=== PATIENT | male | born 1945 | race Caucasian/White ===

== ENCOUNTER 2018-10-12 11:54 | Inpatient (IN) ==
--- NOTE | 2018-10-12 12:54 | Internal Med History&Physical ---
Date of Encounter: 10/12/18 Time of Encounter: 12:32 Assessment and Plan (1) Acute exacerbation of chronic obstructive airways disease Current visit: Yes Status: Acute Patient was admitted to an [facility] hospital with exacerbation of COPD and right lower lobe pneumonia. Patient was treated with BiPAP, antibiotics and cortical steroids and had a uneventful recovery. Patient was transferred to this facility due to his poor endurance and generalized weakness. Patient currently appears relaxed with his respiratory status. Lungs are clear with diminished breath sounds to the lower joshi. Continues with supplemental oxygen. Productive cough with white thick sputum. Endorses orthopnea. We will continue with current plan of care. Patient remains on a prednisone slow taper. We will continue with current bronchodilators and patient does have a continued antibiotic. Therapy evaluation pending with recommendations. We will continue to monitor closely. (2) BPH (benign prostatic hyperplasia) Current visit: Yes Status: Acute Patient with a history of BPH. Currently denies any issues but does state he has occasional nocturia. We will continue with current medications and monitor closely Qualifiers: Lower urinary tract symptom presence: symptoms present Lower urinary tract symptom detail: unspecified Qualified Code(s): N40.1 - Benign prostatic hyperplasia with lower urinary tract symptoms (3) Pneumonia Current visit: No Status: Acute No acute issues at this time. Patient was treated for right lower lobe pneumonia. Patient continues with Zithromax. Afebrile. Thick white sputum received. We will continue with current plan of care. Qualifiers: Pneumonia type: due to unspecified organism Laterality: right Lung location: middle lobe of lung Qualified Code(s): J18.1 - Lobar pneumonia, unspecified organism (4) Low back pain Current visit: Yes Status: Chronic No acute issues. Patient with long-standing history of low back pain. We will continue with his current Percocet and Flexeril. Patient with an order for IM when necessary which we will use sparingly. Qualifiers: Chronicity: chronic Back pain laterality: unspecified Sciatica presence: with sciatica Sciatica laterality: sciatica laterality unspecified Qualified Code(s): M54.40 - Lumbago with sciatica, unspecified side; G89.29 - Other chronic pain Internal Medicine - H&P: HPI Chief complaint: COPD Admitted From: Hospital to Hospital Transfer Plans for Post Hospital Care: Home History of present illness: Mr. Parks is a 72 year old male, who was treated at an [facility] for exacerbation of COPD and right lower lobe pneumonia. Patient was treated with a BiPAP and antibiotics during his hospitalization and progressed well. Patient was evaluated for his history of CHF, requiring light diuresis. Most recent EF was documented at 55%. Patient reports that he has been a active smoker of a pack a day since he was 17 years old with his last day of smoking on the day of admission. Patient also with a history of chronic anemia, hypertension, GERD, BPH and chronic low back pain. Patient presents appearing alert and denies any discomforts or shortness of breath. Patient continues on supplemental oxygen at 2 L. His lungs are clear throughout upper joshi with diminished bases. Patient states he has a productive cough with a white phlegm produced. Patient states that his pulmonary status has worsened over the past several weeks, but prior to his original admission at the hospital he was able to go up and down stairs and ABG ambulate greater than 100% feet without difficulty. He states now he feels very weak and is unable to ambulate further than a few steps without being fatigued. He endorses orthopnea. Patient does state that he was using his nebulized bronchodilators as often as every 4 hours at home and did not use his rescue inhaler frequently throughout the day. Patient states his been on supplemental oxygen for the past 6 years. Patient states [facility] [place] [facility] and does see a pulmonology group in [place]. Past Med Surg Social Fam HX - Past Medical History Medical history: arthritis, asthma, COPD, hyperlipidemia, hypertension Additional medical history: pneumonia,lung mass removed,skin cancer Psychiatric history: no psych history - Past Surgical History Surgical History: non-contributory, other Additional surgical history: RIGHT LUNG SX, BACK SX - Social History Smoking Status: Smoker, status unknown Smokeless Tobacco Status: No Alcohol use: occasionally Drug use: none - Family History Father Adopted: No Family Member Ethnicity: Non- Living Status: Hx Family Respiratory Disorders: Yes Internal Medicine - H&P: Meds Acetylcysteine 10% 4 ml IH Q12H 04/08/15 [History] Albuterol Neb [AccuNeb] 0.63 mg IH Q6H PRN 04/08/15 [History] Albuterol Sulfate [Albuterol Inhaler] 2 puff IH Q4H PRN 04/08/15 [History] Atorvastatin [Lipitor] 10 mg PO HS 04/08/15 [History] Azithromycin [Azithromycin 6-Tab Pack] 250 mg PO PER PKG DI 04/08/15 [History] Budesonide/Formoterol 160/4.5 [Symbicort 160/4.5] 2 puff IH BID 04/08/15 [History] Calcium Carbonate 650 mg PO BID 04/08/15 [History] Fluticasone Propionate [Flovent Diskus] 50 mcg IH DAILY 04/08/15 [History] Guaifenesin 400 mg PO BID 04/08/15 [History] Metoprolol [Lopressor] 25 mg PO BID 04/08/15 [History] Nicotine Gum [Nicorette gum] 4 mg BC 5XD 04/08/15 [History] Roflumilast [Daliresp] 500 mcg PO DAILY 04/08/15 [History] Theophylline Anhydrous [Terrell-24] 100 mg PO DAILY 04/08/15 [History] Tiotropium [Spiriva] 18 mcg IH 1200 04/08/15 [History] predniSONE [PredniSONE] 10 mg PO DAILY 04/08/15 [History] Aspirin [Adult Low Dose Aspirin EC] 81 mg PO DAILY 04/09/15 [History] Cholecalciferol (Vitamin D3) [Vitamin D] 1,000 unit PO BID 04/09/15 [History] Multivitamin [Multi-Day Vitamins] 1 each PO DAILY 04/09/15 [History] Pseudoephedrine [Sudafed] 60 mg PO BID PRN 04/09/15 [History] Allergy/AdvReac Type Severity Reaction Status Date / Time codeine AdvReac Gastrointestinal Verified 08/02/17 09:30 Upset All Systems PM: A 10-system review of systems was performed and is negative for pertinent findings except as documented above in the HPI. - Constitutional Constitutional: as per HPI, no chills, no fever(s), no night sweats - EENT Eyes: as per HPI, no change in vision, no discharge, no pain, no photophobia Ears: as per HPI, no ear discharge, no ear pain, no tinnitus Nose, mouth and throat: as per HPI, no dysphagia, no nasal discharge, no neck pain, no sore throat - Breasts Breasts: as per HPI - Cardiovascular Cardiovascular ROS IM: as per HPI, no chest pain, no diaphoresis, no dyspnea, no lightheadedness, no palpitations, no syncope - Respiratory Respiratory: as per HPI, no cough, no dyspnea, no wheezing, no excessive phlegm production - Gastrointestinal Gastrointestinal: no abdominal pain, no diarrhea, no hematemesis, no hematochezia, no melena, no nausea, no vomiting - Genitourinary Genitourinary ROS male: as per HPI - Musculoskeletal Musculoskeletal ROS IM: as per HPI, no numbness, no tingling - Integumentary Integumentary IM: as per HPI, no rash, no unusual bruising - Neurological Neurological ROS: as per HPI, no confusion, no convulsions, no focal weakness, no numbness, no tingling, no tremor(s) - Psychiatric Psychiatric: as per HPI - Hematologic/Lymphatic Hematologic/Lymphatic: no easy bruising - Constitutional General appearance: Present: A&O X 3, pleasant - Head Head exam: Present: atraumatic, normocephalic - Eye Eye exam: Present: PERRL, conjuntiva pink, sclera anicteric Pupils: Present: PERRL - Neck Neck exam general surgery: Present: supple, trachea midline. Absent: lymphadenopathy - Respiratory Respiratory exam: Present: decreased breath sounds, CTAB. Absent: accessory muscle use, rales, rhonchi, wheezes Additional comments: Patient's lungs are clear throughout upper joshi with diminished breath sounds heard to the bases. Respiratory effort appears relaxed while at rest. Patient continues with supplemental oxygen at 2 L/m by nasal cannula. Patient states she has a productive cough with white phlegm produced - Cardiovascular Cardiovascular exam: Present: RRR, +S1, +S2. Absent: diastolic murmur, gallop, rubs, systolic murmur - GI/Abdominal GI/Abdominal exam: Present: normal bowel sounds, soft, no peritoneal signs. Absent: distended, tenderness - Extremities Exam Extremities exam: Present: warm, radial pulses palpable and symmetrical. Absent: calf tenderness, cyanotic, pedal edema - Neurological Exam Neurological exam: Present: CN II-XII intact, oriented X3, no focal deficits. Absent: pronater drift, facial droop, speech deficit - Skin Skin exam: Present: dry, intact
[2018-10-12] MEDS ORDERED: Nicotine 2 MG GUM BC PRN (14:28)
[2018-10-12] MEDS ORDERED: Albuterol Neb 0.63 MG/3 ML VIAL IH PRN (14:28)
[2018-10-12] MEDS ORDERED: *HR* OxyCODONE/APAP 5/325 TABLET PO PRN (14:28)
[2018-10-12] MEDS ORDERED: Azithromycin 250 MG TABLET PO ONE (14:35)
[2018-10-12] MEDS ORDERED: Azithromycin 250 MG TABLET PO SCH (14:45)
[2018-10-12] MEDS ORDERED: Nicotine 2 MG GUM BC SCH (16:00)
[2018-10-12] MEDS: Acetylcysteine 10% 2 ML INHSOL IH SCH ×2 (16:52→23:58)
[2018-10-12] MEDS: Budesonide/Formoterol 160/4.5 1 PUFF INH IH SCH (20:06)
[2018-10-12] MEDS ORDERED: diazePAM 2 MG TABLET PO SCH (21:00)
[2018-10-12] MEDS: traMADol 50 MG TABLET PO PRN (21:20)
[2018-10-12] MEDS: Fluticasone Propionate Nasal 50 MCG/SPRAY BOTTLE NS SCH (21:21)
[2018-10-12] MEDS: diazePAM 2 MG TABLET PO PRN (21:36)
[2018-10-13] MEDS: diazePAM 2 MG TABLET PO PRN (05:52)
[2018-10-13] MEDS: traMADol 50 MG TABLET PO PRN (05:52)
[2018-10-13 05:56] LABS: Hematocrit 32.2 % (37.5-50.1); Mean Corpuscular HGB Conc 31.1 g/dL (31.6-35.5); Mean Corpuscular Hemoglobin 28.7 pg (28.0-33.3); Mean Corpuscular Volume 92.3 fL (83.0-100.0); Mean Platelet Volume 8.8 fL (9.4-12.4); Platelet Count 333 K/mcL (140-400); Red Blood Count 3.49 M/mcL (4.19-5.50); Red Cell Distribution Width 14.1 % (11.5-14.5); White Blood Count 7.9 K/mcL (4.3-11.1)
[2018-10-13 06:15] LABS: Alanine Aminotransferase 16 Units/L (7-52); Albumin 3.1 g/dL (3.5-5.7); Albumin/Globulin Ratio 1.2 (1.1-2.2); Alkaline Phosphatase 67 Units/L (34-104); Aspartate Amino Transferase 7 Units/L (13-39); BUN/Creatinine Ratio 42 (6-26); Bilirubin,Total 0.6 mg/dL (0.3-1.0); Blood Urea Nitrogen 30 mg/dL (8-23); Calcium 9.4 mg/dL (8.6-10.3); Carbon Dioxide 36 mEq/L (23-29); Chloride 102 mEq/L (98-107); Globulin 2.6 g/dL (2.4-3.5); Glucose 95 mg/dL (70-105); Osmolality,Calculated 296 (280-300); Potassium 4.2 mEq/L (3.5-5.1); Sodium 140 mEq/L (136-145); Total Protein 5.7 g/dL (6.4-8.9); eGFR For African Americans > 60 (> 60); eGFR For Non-African Americans > 60 (> 60)
[2018-10-13] MEDS: Budesonide/Formoterol 160/4.5 1 PUFF INH IH SCH ×2 (09:51→19:41)
[2018-10-13] MEDS: Furosemide 40 MG TABLET PO SCH (10:42)
[2018-10-13] MEDS: Azithromycin 250 MG TABLET PO SCH (10:42)
[2018-10-13] MEDS: Multivit/Ca/Min/Fe/FA 1 TAB TABLET PO SCH (10:43)
[2018-10-13] MEDS: Aspirin Enteric Coated 81 MG Tablet PO SCH (10:44)
[2018-10-13] MEDS: predniSONE 10 MG TABLET PO SCH (10:46)
[2018-10-13] MEDS: Fluticasone Propionate Nasal 50 MCG/SPRAY BOTTLE NS SCH ×2 (10:47→21:57)
[2018-10-13] MEDS: Loratadine 10 MG TABLET PO SCH (10:48)
[2018-10-13] MEDS: Cyanocobalamin (B-12) 1,000 MCG TABLET PO SCH (10:49)
[2018-10-13] MEDS: (Roflumilast [Daliresp] 500 MCG) PO SCH (10:55)
--- NOTE | 2018-10-13 11:12 | Internal Med Progress Note ---
Date of Encounter: 10/13/18 Time of Encounter: 11:10 - Assessment and plan (1) Acute exacerbation of chronic obstructive airways disease Current Visit: Yes Status: Acute Assessment and plan: No acute issues. Patient ambulated greater than 100 feet this morning, before becoming slightly fatigued and winded. Patient states that he did not fill and need to use his rescue inhaler. Patient continues on oxygen at 23 liters nasal cannula to maintain saturations greater than 88%. We will continue to wean his oxygen. Continue with current bronchodilators and medications. (2) BPH (benign prostatic hyperplasia) Current Visit: Yes Status: Acute Assessment and plan: No acute issues. Patient denies any frequency or nocturia. We will continue with current medications Qualifiers: Lower urinary tract symptom presence: symptoms present Lower urinary tract symptom detail: unspecified Qualified Code(s): N40.1 - Benign prostatic hyperplasia with lower urinary tract symptoms (3) Pneumonia Current Visit: No Status: Acute Assessment and plan: Patient continues to have fine rales her to the lower joshi but no consolidation noted on auscultation. Respiratory effort appears relaxed while at rest. Patient remains afebrile. Continues with productive cough with thick white sputum received. Patient continues on Z-Anibal at this time Qualifiers: Pneumonia type: due to unspecified organism Laterality: right Lung location: middle lobe of lung Qualified Code(s): J18.1 - Lobar pneumonia, unspecified organism (4) Low back pain Current Visit: Yes Status: Chronic Assessment and plan: No acute issues. Patient continues with when necessary medications but has had normal use. Qualifiers: Chronicity: chronic Back pain laterality: unspecified Sciatica presence: with sciatica Sciatica laterality: sciatica laterality unspecified Qualified Code(s): M54.40 - Lumbago with sciatica, unspecified side; G89.29 - Other chronic pain - Time Spent With Patient less than 15 minutes - Subjective Interval history: Patient appears relaxed and currently denies any discomforts or shortness of breath. Patient did state that he ambulated with therapy this morning became winded, but did not require his rescue inhaler. Patient states she continues to have productive cough with a white thick phlegm received. Denies any fever/chills. Denies any chest palpitations or discomforts. - Constitutional Vitals: Temp Pulse Resp BP Pulse Ox 97.6 F 89 18 122/69 97 10/13/18 07:41 10/13/18 07:41 10/13/18 07:41 10/13/18 07:41 10/13/18 07:41 General appearance: Present: A&O X 3, pleasant - Head Head exam: Present: atraumatic, normocephalic - Eye Eye exam: Present: PERRL, conjuntiva pink, sclera anicteric Pupils: Present: PERRL - Neck Neck exam general surgery: Present: supple, trachea midline. Absent: lymphadenopathy - Respiratory Respiratory exam: Present: decreased breath sounds, CTAB, rales. Absent: accessory muscle use, rhonchi, wheezes Additional comments: Lungs are clear throughout upper joshi but noted diminished breath sounds to lower half of lung joshi and with scattered fine rales to posterior basis. Respiratory effort appears relaxed. Patient continues on supplemental oxygen at 3 L nasal cannula. - Cardiovascular Cardiovascular exam: Present: irregular rhythm, RRR, +S1, +S2. Absent: diast olic murmur, gallop, rubs, systolic murmur Additional comments: EKG was obtained which shows sinus rhythm with PACs. - GI/Abdominal GI/Abdominal exam: Present: normal bowel sounds, soft, no peritoneal signs. Absent: distended, tenderness - Extremities Exam Extremities exam: Present: warm, radial pulses palpable and symmetrical. Absent: calf tenderness, cyanotic, pedal edema - Neurological Exam Neurological exam: Present: CN II-XII intact, oriented X3, no focal deficits. Absent: pronater drift, facial droop, speech deficit - Skin Skin exam: Present: dry, intact Internal Medicine: Result - Labs CBC & Chem 7: 10/13/18 05:50 10/13/18 05:50 Labs: Short CBC 10/13/18 Range/Units 05:50 WBC 7.9 (4.3-11.1) K/mcL Hgb 10.0 L (12.9-16.9) g/dL Hct 32.2 L (37.5-50.1) % Plt Count 333 (140-400) K/mcL BMP 10/13/18 05:50 Sodium 140 Potassium 4.2 Chloride 102 Carbon Dioxide 36 H BUN 30 H Creatinine 0.71 Glucose 95 Calcium 9.4 Liver Function 10/13/18 Range/Units 05:50 Total Bilirubin 0.6 (0.3-1.0) mg/dL AST 7 L (13-39) Units/L ALT 16 (7-52) Units/L Alkaline Phosphatase 67 (34-104) Units/L Albumin 3.1 L (3.5-5.7) g/dL - EKG Interpretation EKG Interpreted by Myself: Yes EKG shows normal: sinus rhythm Rate: normal Consult Discharge Plan - Plan [facility]errals: [facility] [Primary Care Provider] -
[2018-10-13] MEDS ORDERED: Tiotropium 18 MCG inhalation IH SCH (12:00)
[2018-10-13] MEDS: *HR* Enoxaparin 40 MG/0.4 ML SYRINGE SQ SCH (13:07)
[2018-10-13] MEDS: Albuterol 2.5 MG/3 ML NEBULIZER IH SCH ×2 (17:11→19:41)
[2018-10-14] MEDS: Albuterol 2.5 MG/3 ML NEBULIZER IH SCH ×6 (00:04→21:36)
[2018-10-14] MEDS: *HR* Enoxaparin 40 MG/0.4 ML SYRINGE SQ SCH (05:15)
[2018-10-14] MEDS ORDERED: *HR* Enoxaparin 40 MG/0.4 ML SYRINGE SQ SCH (06:00)
[2018-10-14] MEDS: Budesonide/Formoterol 160/4.5 1 PUFF INH IH SCH ×2 (08:08→21:36)
[2018-10-14] MEDS: Tiotropium 18 MCG inhalation IH SCH (08:08)
[2018-10-14] MEDS: Loratadine 10 MG TABLET PO SCH (10:27)
[2018-10-14] MEDS: Furosemide 40 MG TABLET PO SCH ×2 (10:27→10:44)
[2018-10-14] MEDS: predniSONE 10 MG TABLET PO SCH (10:28)
[2018-10-14] MEDS: Cyanocobalamin (B-12) 1,000 MCG TABLET PO SCH (10:29)
[2018-10-14] MEDS: Azithromycin 250 MG TABLET PO SCH (10:29)
[2018-10-14] MEDS: Aspirin Enteric Coated 81 MG Tablet PO SCH (10:29)
[2018-10-14] MEDS: Multivit/Ca/Min/Fe/FA 1 TAB TABLET PO SCH (10:29)
[2018-10-14] MEDS: Fluticasone Propionate Nasal 50 MCG/SPRAY BOTTLE NS SCH ×2 (10:32→21:36)
[2018-10-14] MEDS: (Roflumilast [Daliresp] 500 MCG) PO SCH (10:32)
--- NOTE | 2018-10-14 11:35 | Internal Med Progress Note ---
Date of Encounter: 10/14/18 Time of Encounter: 11:32 - Assessment and plan (1) Acute exacerbation of chronic obstructive airways disease Current Visit: Yes Status: Acute Assessment and plan: No acute issues. Patient ambulated this morning and tolerated well. Patient continues on oxygen at 23 liters nasal cannula to maintain saturations greater than 88%. We will continue to wean his oxygen. Continue with current bronchodi lators and medications. (2) BPH (benign prostatic hyperplasia) Current Visit: Yes Status: Acute Assessment and plan: No acute issues. Patient denies any frequency or nocturia. We will continue with current medications Qualifiers: Lower urinary tract symptom presence: symptoms present Lower urinary tract symptom detail: unspecified Qualified Code(s): N40.1 - Benign prostatic hyperplasia with lower urinary tract symptoms (3) Pneumonia Current Visit: No Status: Acute Assessment and plan: Patient continues to have fine rales her to the lower joshi but no consolidation noted on auscultation. Respiratory effort appears relaxed while at rest. Patient remains afebrile. Continues with productive cough with thick white sputum received. Patient continues on Z-Anibal at this time Qualifiers: Pneumonia type: due to unspecified organism Laterality: right Lung location: middle lobe of lung Qualified Code(s): J18.1 - Lobar pneumonia, unspecified organism (4) Low back pain Current Visit: Yes Status: Chronic Assessment and plan: No acute issues. Patient did complain of slight pain to his lower back this morning but states that he will take only Tylenol at this time for the pain. Qualifiers: Chronicity: chronic Back pain laterality: unspecified Sciatica presence: with sciatica Sciatica laterality: sciatica laterality unspecified Qualified Code(s): M54.40 - Lumbago with sciatica, unspecified side; G89.29 - Other chronic pain - Time Spent With Patient less than 15 minutes - Subjective Interval history: Patient appears relaxed and currently denies any discomforts or shortness of breath. Patient states that he ambulated with therapy this morning and tolerated well from a pulmonary standpoint, but has had complaints of stiffness to his lower back. Patient with history of lumbar disc disease. Patient states she continues to have productive cough with a white thick phlegm received. Denies any fever/chills. Denies any chest palpitations or discomforts. - Constitutional Vitals: Temp Pulse Resp BP Pulse Ox 98.1 F 112 18 97/65 93 10/14/18 07:47 10/14/18 10:30 10/14/18 10:30 10/14/18 10:30 10/14/18 10:30 General appearance: Present: A&O X 3, pleasant - Head Head exam: Present: atraumatic, normocephalic - Eye Eye exam: Present: PERRL, conjuntiva pink, sclera anicteric Pupils: Present: PERRL - Neck Neck exam general surgery: Present: supple, trachea midline. Absent: lymphadenopathy - Respiratory Respiratory exam: Present: decreased breath sounds, CTAB, rales. Absent: accessory muscle use, rhonchi, wheezes Additional comments: Patient's lungs are clear throughout upper joshi but noted diminished breath sounds to lower half of his lung joshi and fine scattered rales to the poste rior bases. Respiratory effort appears relaxed while at rest. Patient continues with subsequent oxygen at 2 L per nasal cannula. Continues with a productive cough with mandel sputum received - Cardiovascular Cardiovascular exam: Present: RRR, +S1, +S2. Absent: diastolic murmur, gallop, rubs, systolic murmur - GI/Abdominal GI/Abdominal exam: Present: normal bowel sounds, soft, no peritoneal signs. Absent: distended, tenderness - Extremities Exam Extremities exam: Present: warm, radial pulses palpable and symmetrical. Absent: calf tenderness, cyanotic, pedal edema - Neurological Exam Neurological exam: Present: CN II-XII intact, oriented X3, no focal deficits. Absent: pronater drift, facial droop, speech deficit - Skin Skin exam: Present: dry, intact Internal Medicine: Result - Labs CBC & Chem 7: 10/13/18 05:50 10/13/18 05:50 Consult Discharge Plan - Plan [facility]errals: [facility] [Primary Care Provider] -
[2018-10-14] MEDS: traMADol 50 MG TABLET PO PRN (18:44)
[2018-10-15] MEDS: Albuterol 2.5 MG/3 ML NEBULIZER IH SCH ×7 (00:54→23:18)
[2018-10-15] MEDS: *HR* Enoxaparin 40 MG/0.4 ML SYRINGE SQ SCH (05:48)
[2018-10-15] MEDS: Tiotropium 18 MCG inhalation IH SCH (07:08)
[2018-10-15] MEDS: Budesonide/Formoterol 160/4.5 1 PUFF INH IH SCH ×2 (07:09→19:31)
[2018-10-15] MEDS: Aspirin Enteric Coated 81 MG Tablet PO SCH (08:21)
[2018-10-15] MEDS: predniSONE 10 MG TABLET PO SCH (08:22)
[2018-10-15] MEDS: Loratadine 10 MG TABLET PO SCH (08:22)
[2018-10-15] MEDS: Azithromycin 250 MG TABLET PO SCH (08:22)
[2018-10-15] MEDS: Multivit/Ca/Min/Fe/FA 1 TAB TABLET PO SCH (08:22)
[2018-10-15] MEDS: Furosemide 40 MG TABLET PO SCH (08:23)
[2018-10-15] MEDS: Cyanocobalamin (B-12) 1,000 MCG TABLET PO SCH (08:24)
[2018-10-15] MEDS: Fluticasone Propionate Nasal 50 MCG/SPRAY BOTTLE NS SCH ×2 (08:28→20:53)
[2018-10-15] MEDS: (Roflumilast [Daliresp] 500 MCG) PO SCH (08:28)
[2018-10-15] MEDS: traMADol 50 MG TABLET PO PRN ×2 (09:39→20:55)
--- NOTE | 2018-10-15 10:22 | Electrocardiograph Report ---
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
--- NOTE | 2018-10-15 18:07 | Internal Med Progress Note ---
Date of Encounter: 10/15/18 Time of Encounter: 16:30 - Subjective Interval history: - Assessment and plan (1) Acute exacerbation of chronic obstructive airways disease Current Visit: Yes Status: Acute Assessment and plan: No acute issues. Patient ambulated this morning and tolerated well. Patient continues on oxygen at 23 liters nasal cannula to maintain saturations greater than 88%. We will continue to wean his oxygen. Continue with current bronchodilators and medications. (2) BPH (benign prostatic hyperplasia) Current Visit: Yes Status: Acute Assessment and plan: No acute issues. Patient denies any frequency or nocturia. We will continue with current medications Qualifiers: Lower urinary tract symptom presence: symptoms present Lower urinary tract symptom detail: unspecified Qualified Code(s): N40.1 - Benign prostatic hyperplasia with lower urinary tract symptoms (3) Pneumonia Current Visit: No Status: Acute Assessment and plan: Patient continues to have fine rales her to the lower joshi but no consolidation noted on auscultation. Respiratory effort appears relaxed while at rest. Patient remains afebrile. Continues with productive cough with thick white sputum received. Patient continues on Z-Anibal at this time Qualifiers: Pneumonia type: due to unspecified organism Laterality: right Lung location: middle lobe of lung Qualified Code(s): J18.1 - Lobar pneumonia, unspecified organism (4) Low back pain Current Visit: Yes Status: Chronic Assessment and plan: No acute issues. Patient did complain of slight pain to his lower back this morning but states that he will take only Tylenol at this time for the pain. Qualifiers: Chronicity: chronic Back pain laterality: unspecified Sciatica presence: with sciatica Sciatica laterality: sciatica laterality unspecified Qualified Code(s): M54.40 - Lumbago with sciatica, unspecified side; G89.29 - Other chronic pain - Time Spent With Patient less than 15 minutes - Subjective Interval history: Patient appears relaxed and currently denies any discomforts or shortness of breath. Patient states that he continues to have complaints of stiffness to his lower back. Patient with history of lumbar disc disease. Patient states she continues to have productive cough with a white thick phlegm but less. Denies any fever/chills. Denies any chest palpitations or discomforts. EXAM General appearance: Present: A&O X 3, pleasant calm - Head Head exam: Present: atraumatic, normocephalic - Eye Eye exam: Present: PERRL, conjuntiva pink, sclera anicteric Pupils: Present: PERRL - Neck Neck exam general surgery: Present: supple, trachea midline. Absent: lymphadenopathy - Respiratory Respiratory exam: Present: decreased breath sounds, CTAB, rales. Absent: accessory muscle use, rhonchi, wheezes Additional comments: Patient's lungs are clear throughout upper joshi but noted diminished breath sounds bilat bases Continues with a slight productive cough with mandel sputum received - Cardiovascular Cardiovascular exam: Present: RRR, +S1, +S2. Absent: diastolic murmur, gallop, rubs, systolic murmur - GI/Abdominal GI/Abdominal exam: Present: normal bowel sounds, soft, no peritoneal signs. Absent: distended, tenderness - Extremities Exam Extremities exam: Present: warm, radial pulses palpable and symmetrical. Absent: calf tenderness, cyanotic, pedal edema - Neurological Exam Neurological exam: Present: CN II-XII intact, oriented X3, no focal deficits. Absent: pronater drift, facial droop, speech deficit - Skin Skin exam: Present: dry, intact - Constitutional Vitals: Temp Pulse Resp BP Pulse Ox 98.1 F 83 19 95/55 96 10/15/18 07:33 10/15/18 07:33 10/15/18 16:09 10/15/18 07:33 10/15/18 16:09 General appearance: Present: A&O X 3, pleasant Internal Medicine: Result - Labs CBC & Chem 7: 10/13/18 05:50 10/13/18 05:50 Consult Discharge Plan - Plan [facility]errals: [facility] [Primary Care Provider] -
[2018-10-16] MEDS: Albuterol 2.5 MG/3 ML NEBULIZER IH SCH ×6 (04:48→23:33)
[2018-10-16] MEDS: *HR* Enoxaparin 40 MG/0.4 ML SYRINGE SQ SCH (04:58)
[2018-10-16] MEDS: Tiotropium 18 MCG inhalation IH SCH (07:13)
[2018-10-16] MEDS: Budesonide/Formoterol 160/4.5 1 PUFF INH IH SCH ×2 (07:14→19:54)
[2018-10-16] MEDS: Furosemide 40 MG TABLET PO SCH (09:29)
[2018-10-16] MEDS: Azithromycin 250 MG TABLET PO SCH (09:29)
[2018-10-16] MEDS: Aspirin Enteric Coated 81 MG Tablet PO SCH (09:30)
[2018-10-16] MEDS: Loratadine 10 MG TABLET PO SCH (09:30)
[2018-10-16] MEDS: Multivit/Ca/Min/Fe/FA 1 TAB TABLET PO SCH (09:30)
[2018-10-16] MEDS: Cyanocobalamin (B-12) 1,000 MCG TABLET PO SCH (09:30)
[2018-10-16] MEDS: predniSONE 10 MG TABLET PO SCH (09:33)
[2018-10-16] MEDS: Fluticasone Propionate Nasal 50 MCG/SPRAY BOTTLE NS SCH ×2 (09:33→20:30)
[2018-10-16] MEDS: (Roflumilast [Daliresp] 500 MCG) PO SCH (09:34)
--- NOTE | 2018-10-16 19:08 | Internal Med Progress Note ---
Date of Encounter: 10/16/18 Time of Encounter: 16:50 - Subjective Interval history: - Assessment and plan (1) Acute exacerbation of chronic obstructive airways disease Current Visit: Yes Status: Acute Assessment and plan: stable. STill sob with exertion at times. Patient continues on oxygen nasal cannula to maintain saturations greater than 88%. We will continue to wean his oxygen. still with some cough. Continue with current bronchodilators and medications. (2) BPH (benign prostatic hyperplasia) Current Visit: Yes Status: Acute Assessment and plan: No acute issues. Patient denies any frequency or nocturia. We will continue with current medications Qualifiers: Lower urinary tract symptom presence: symptoms present Lower urinary tract symptom detail: unspecified Qualified Code(s): N40.1 - Benign prostatic hyperplasia with lower urinary tract symptoms (3) Pneumonia Current Visit: No Status: Acute Assessment and plan: Patient continues to have fine rales her to the lower joshi but no conso lidation noted on auscultation. Respiratory effort appears relaxed while at rest. Patient remains afebrile. Continues with productive cough with thick white sputum received. Patient continues on Z-Anibal at this time Qualifiers: Pneumonia type: due to unspecified organism Laterality: right Lung location: middle lobe of lung Qualified Code(s): J18.1 - Lobar pneumonia, unspecified organism (4) Low back pain Current Visit: Yes Status: Chronic Assessment and plan: No acute issues. Patient did complain of slight pain to his lower back this morning but states that he will take only Tylenol at this time for the pain. Qualifiers: Chronicity: chronic Back pain laterality: unspecified Sciatica presence: with sciatica Sciatica laterality: sciatica laterality unspecified Qualified Code(s): M54.40 - Lumbago with sciatica, unspecified side; G89.29 - Other chronic pain - Time Spent With Patient less than 15 minutes - Subjective Interval history: Patient appears relaxed and currently denies any discomforts or shortness of breath. Patient states that he continues to have complaints of stiffness to his lower back. Patient with history of lumbar disc disease. Patient states she continues to have productive cough with a white thick phlegm but less. Denies any fever/chills. Denies any chest palpitations or discomforts. EXAM General appearance: Present: A&O X 3 - Head Head exam: Present: atraumatic, normocephalic - Eye Eye exam: Present: PERRL, conjuntiva pink, sclera anicteric Pupils: Present: PERRL - Neck Neck exam general surgery: Present: supple, trachea midline. Absent: lymphadenopathy - Respiratory Respiratory exam: Present: decreased breath sounds, CTAB, rales. Absent: accessory muscle use, rhonchi, wheezes Additional comments: Patient's lungs are clear throughout upper joshi but noted diminished breath sounds bilat bases Continues with a slight productive cough with mandel sputum received - Cardiovascular Cardiovascular exam: Present: RRR, +S1, +S2. Absent: diastolic murmur, gallop, rubs, systolic murmur - GI/Abdominal GI/Abdominal exam: Present: normal bowel sounds, soft, no peritoneal signs. Absent: distended, tenderness - Extremities Exam Extremities exam: Present: warm, radial pulses palpable and symmetrical. Absent: calf tenderness, cyanotic, pedal edema - Neurological Exam Neurological exam: Present: CN II-XII intact, oriented X3, no focal deficits. Absent: pronater drift, facial droop, speech deficit - Skin Skin exam: Present: dry, intact - Constitutional Vitals: Temp Pulse Resp BP Pulse Ox 97.7 F 89 18 101/47 96 10/16/18 09:24 10/16/18 09:24 10/16/18 15:47 10/16/18 09:24 10/16/18 15:47 General appearance: Present: A&O X 3, pleasant Internal Medicine: Result - Labs CBC & Chem 7: 10/13/18 05:50 10/13/18 05:50 Consult Discharge Plan - Plan [facility]errals: [facility] [Primary Care Provider] -
[2018-10-16] MEDS: traMADol 50 MG TABLET PO PRN (20:31)
[2018-10-17] MEDS ORDERED: Mag Hydrox/Al Hydrox/Simeth 30 ML UDC PO PRN (00:07)
[2018-10-17] MEDS: Albuterol 2.5 MG/3 ML NEBULIZER IH SCH ×5 (03:57→22:02)
[2018-10-17] MEDS: *HR* Enoxaparin 40 MG/0.4 ML SYRINGE SQ SCH (04:15)
[2018-10-17] MEDS: Tiotropium 18 MCG inhalation IH SCH (07:26)
[2018-10-17] MEDS: Budesonide/Formoterol 160/4.5 1 PUFF INH IH SCH ×2 (07:27→21:59)
[2018-10-17] MEDS: Furosemide 40 MG TABLET PO SCH (09:27)
[2018-10-17] MEDS: Azithromycin 250 MG TABLET PO SCH (09:27)
[2018-10-17] MEDS: Multivit/Ca/Min/Fe/FA 1 TAB TABLET PO SCH (09:27)
[2018-10-17] MEDS: Aspirin Enteric Coated 81 MG Tablet PO SCH (09:27)
[2018-10-17] MEDS: Loratadine 10 MG TABLET PO SCH (09:28)
[2018-10-17] MEDS: Cyanocobalamin (B-12) 1,000 MCG TABLET PO SCH (09:28)
[2018-10-17] MEDS: Fluticasone Propionate Nasal 50 MCG/SPRAY BOTTLE NS SCH ×2 (09:29→21:59)
[2018-10-17] MEDS: (Roflumilast [Daliresp] 500 MCG) PO SCH (09:30)
[2018-10-17] MEDS: predniSONE 10 MG TABLET PO SCH (09:31)
--- NOTE | 2018-10-17 12:08 | Internal Med Progress Note ---
Date of Encounter: 10/17/18 Time of Encounter: 12:06 - Assessment and plan (1) Acute exacerbation of chronic obstructive airways disease Current Visit: Yes Status: Acute Assessment and plan: Improving. Continue O2 per nasal nasal cannula. Continue prednisone. Continue PT and OT for deconditioning. Will follow progress. (2) BPH (benign prostatic hyperplasia) Current Visit: Yes Status: Acute Assessment and plan: Denies complaints or issues. Continue current medication. Qualifiers: Lower urinary tract symptom presence: symptoms present Lower urinary tract symptom detail: unspecified Qualified Code(s): N40.1 - Benign prostatic hyperplasia with lower urinary tract symptoms - Time Spent With Patient less than 15 minutes - Subjective Interval history: Dissipating well with therapy. States she feels like he is getting stronger. Has had improved appetite. States shortness of breath is improving. Still has a productive cough with white sputum. Denies chest pain, fever, chills, nausea vomiting or diarrhea. - Constitutional Vitals: Temp Pulse Resp BP Pulse Ox 98.1 F 88 18 102/46 98 10/17/18 08:22 10/17/18 08:22 10/17/18 11:11 10/17/18 08:22 10/17/18 11:11 General appearance: Present: cooperative, A&O X 3, pleasant, no acute distress, answers questions appropriately - Head Head exam: Present: atraumatic, normocephalic - Eye Eye exam: Present: PERRL, conjuntiva pink, sclera anicteric Pupils: Present: PERRL - Neck Neck exam general surgery: Present: supple, trachea midline. Absent: lymphadenopathy - Respiratory Respiratory exam: Absent: accessory muscle use, rales, rhonchi, wheezes Additional comments: Find crackles to right lower lobe, diminished bilateral basis. - Cardiovascular Cardiovascular exam: Present: RRR, +S1, +S2. Absent: diastolic murmur, gallop, rubs, systolic murmur - GI/Abdominal GI/Abdominal exam: Present: normal bowel sounds, soft, no peritoneal signs. Ab sent: distended, tenderness - Extremities Exam Extremities exam: Present: warm, radial pulses palpable and symmetrical. Absent: calf tenderness, cyanotic, pedal edema - Neurological Exam Neurological exam: Present: CN II-XII intact, oriented X3, no focal deficits. Absent: pronater drift, facial droop, speech deficit - Skin Skin exam: Present: dry, intact Internal Medicine: Result - Labs CBC & Chem 7: 10/13/18 05:50 10/13/18 05:50 Consult Discharge Plan - Plan [facility]errals: [facility] [Primary Care Provider] -
[2018-10-17] MEDS: traMADol 50 MG TABLET PO PRN (22:02)
[2018-10-18] MEDS: Albuterol 2.5 MG/3 ML NEBULIZER IH SCH ×6 (04:07→20:57)
[2018-10-18] MEDS: *HR* Enoxaparin 40 MG/0.4 ML SYRINGE SQ SCH (04:54)
[2018-10-18] MEDS: Budesonide/Formoterol 160/4.5 1 PUFF INH IH SCH ×2 (07:19→20:56)
[2018-10-18] MEDS: Tiotropium 18 MCG inhalation IH SCH (07:50)
[2018-10-18] MEDS: Multivit/Ca/Min/Fe/FA 1 TAB TABLET PO SCH (08:04)
[2018-10-18] MEDS: Loratadine 10 MG TABLET PO SCH (08:04)
[2018-10-18] MEDS: Aspirin Enteric Coated 81 MG Tablet PO SCH (08:04)
[2018-10-18] MEDS: Cyanocobalamin (B-12) 1,000 MCG TABLET PO SCH (08:04)
[2018-10-18] MEDS: Furosemide 40 MG TABLET PO SCH (08:04)
[2018-10-18] MEDS: predniSONE 10 MG TABLET PO SCH (08:05)
[2018-10-18] MEDS: Fluticasone Propionate Nasal 50 MCG/SPRAY BOTTLE NS SCH ×2 (08:07→20:55)
[2018-10-18] MEDS: (Roflumilast [Daliresp] 500 MCG) PO SCH (08:09)
--- NOTE | 2018-10-18 10:55 | Internal Med Progress Note ---
Date of Encounter: 10/18/18 Time of Encounter: 10:53 - Assessment and plan (1) Acute exacerbation of chronic obstructive airways disease Current Visit: Yes Status: Acute Assessment and plan: Improving. Continue O2 per nasal nasal cannula. Continue prednisone. Continue PT and OT for deconditioning. Will follow progress. (2) BPH (benign prostatic hyperplasia) Current Visit: Yes Status: Acute Assessment and plan: Denies complaints or issues. Continue current medication. Qualifiers: Lower urinary tract symptom presence: symptoms present Lower urinary tract symptom detail: unspecified Qualified Code(s): N40.1 - Benign prostatic hyperplasia with lower urinary tract symptoms - Time Spent With Patient less than 15 minutes - Subjective Interval history: participating well with therapy. States feeling better today, sitting on side of bed. Has had improved appetite. States shortness of breath is improving. Still has a productive cough with white sputum. Denies chest pain, fever, chills, nausea vomiting or diarrhea. back pain improving with lidoderm patch. - Constitutional Vitals: Temp Pulse Resp BP Pulse Ox 97.7 F 108 18 109/50 96 10/18/18 08:00 10/18/18 08:00 10/18/18 08:00 10/18/18 08:00 10/18/18 08:00 General appearance: Present: cooperative, A&O X 3, pleasant, no acute distress, answers questions appropriately - Head Head exam: Present: atraumatic, normocephalic - Eye Eye exam: Present: PERRL, conjuntiva pink, sclera anicteric Pupils: Present: PERRL - Neck Neck exam general surgery: Present: supple, trachea midline. Absent: lymphadenopathy - Respiratory Respiratory exam: Present: CTAB. Absent: accessory muscle use, rales, rhonchi, wheezes - Cardiovascular Cardiovascular exam: Present: RRR, +S1, +S2. Absent: diastolic murmur, gallop, rubs, systolic murmur - GI/Abdominal GI/Abdominal exam: Present: normal bowel sounds, soft, no peritoneal signs. Absent: distended, tenderness - Extremities Exam Extremities exam: Present: warm, radial pulses palpable and symmetrical. Absent: calf tenderness, cyanotic, pedal edema - Neurological Exam Neurological exam: Present: CN II-XII intact, oriented X3, no focal deficits. Absent: pronater drift, facial droop, speech deficit - Skin Skin exam: Present: dry, intact Internal Medicine: Result - Labs CBC & Chem 7: 10/13/18 05:50 10/13/18 05:50 Consult Discharge Plan - Plan [facility]errals: [facility] [Primary Care Provider] -
[2018-10-19] MEDS: Albuterol 2.5 MG/3 ML NEBULIZER IH SCH ×6 (00:56→21:21)
[2018-10-19] MEDS: *HR* Enoxaparin 40 MG/0.4 ML SYRINGE SQ SCH (05:00)
[2018-10-19] MEDS: Budesonide/Formoterol 160/4.5 1 PUFF INH IH SCH ×2 (07:12→19:38)
[2018-10-19] MEDS: Tiotropium 18 MCG inhalation IH SCH (07:13)
[2018-10-19] MEDS: Cyanocobalamin (B-12) 1,000 MCG TABLET PO SCH (09:08)
[2018-10-19] MEDS: Aspirin Enteric Coated 81 MG Tablet PO SCH (09:08)
[2018-10-19] MEDS: Loratadine 10 MG TABLET PO SCH (09:08)
[2018-10-19] MEDS: Furosemide 40 MG TABLET PO SCH (09:09)
[2018-10-19] MEDS: predniSONE 10 MG TABLET PO SCH (09:09)
[2018-10-19] MEDS: Fluticasone Propionate Nasal 50 MCG/SPRAY BOTTLE NS SCH ×2 (09:10→21:55)
[2018-10-19] MEDS: Multivit/Ca/Min/Fe/FA 1 TAB TABLET PO SCH (09:13)
[2018-10-19] MEDS: (Roflumilast [Daliresp] 500 MCG) PO SCH (09:17)
--- NOTE | 2018-10-19 10:47 | Internal Med Progress Note ---
Date of Encounter: 10/19/18 Time of Encounter: 10:46 - Assessment and plan (1) Acute exacerbation of chronic obstructive airways disease Current Visit: Yes Status: Acute Assessment and plan: No acute issues. Patient ambulated this morning and tolerated well. Patient continues on oxygen at 23 liters nasal cannula to maintain saturations greater than 88%. Therapy reports patient's oxygen saturations have remained greater th an 90 during therapy We will continue to wean his oxygen. Continue with current bronchodilators and medications. (2) BPH (benign prostatic hyperplasia) Current Visit: Yes Status: Acute Assessment and plan: No acute issues. Patient denies any frequency or nocturia. We will continue with current medications Qualifiers: Lower urinary tract symptom presence: symptoms present Lower urinary tract symptom detail: unspecified Qualified Code(s): N40.1 - Benign prostatic hyperplasia with lower urinary tract symptoms (3) Low back pain Current Visit: Yes Status: Chronic Qualifiers: Chronicity: chronic Back pain laterality: unspecified Sciatica presence: with sciatica Sciatica laterality: sciatica laterality unspecified Qualified Code(s): M54.40 - Lumbago with sciatica, unspecified side; G89.29 - Other chronic pain - Time Spent With Patient less than 15 minutes - Subjective Interval history: Patient appears relaxed and currently denies any discomforts or shortness of breath. Patient states that he ambulated with therapy this morning and tolerated well from a pulmonary standpoint, but has had complaints of stiffness to his lower back. Patient with history of lumbar disc disease. Patient states she continues to have productive cough with a white thick phlegm received. Denies any fever/chills. Denies any chest palpitations or discomforts. - Constitutional Vitals: Temp Pulse Resp BP Pulse Ox 98.7 F 96 16 101/45 98 10/19/18 07:48 10/19/18 07:48 10/19/18 07:48 10/19/18 07:48 10/19/18 07:48 General appearance: Present: cooperative, A&O X 3, pleasant, no acute distress, answers questions appropriately - Head Head exam: Present: atraumatic, normocephalic - Eye Eye exam: Present: PERRL, conjuntiva pink, sclera anicteric Pupils: Present: PERRL - Neck Neck exam general surgery: Present: supple, trachea midline. Absent: lymphadenopathy - Respiratory Respiratory exam: Present: decreased breath sounds, CTAB. Absent: accessory muscle use, rales, rhonchi, wheezes - Cardiovascular Cardiovascular exam: Present: RRR, +S1, +S2. Absent: diastolic murmur, gallop, rubs, systolic murmur - GI/Abdominal GI/Abdominal exam: Present: normal bowel sounds, soft, no peritoneal signs. Ab sent: distended, tenderness - Extremities Exam Extremities exam: Present: warm, radial pulses palpable and symmetrical. Absent: calf tenderness, cyanotic, pedal edema - Neurological Exam Neurological exam: Present: CN II-XII intact, oriented X3, no focal deficits. Absent: pronater drift, facial droop, speech deficit - Skin Skin exam: Present: dry, intact Internal Medicine: Result - Labs CBC & Chem 7: 10/13/18 05:50 10/13/18 05:50 Consult Discharge Plan - Plan [facility]errals: [facility] [Primary Care Provider] -
[2018-10-20] MEDS: Albuterol 2.5 MG/3 ML NEBULIZER IH SCH ×7 (05:36→23:18)
[2018-10-20] MEDS: *HR* Enoxaparin 40 MG/0.4 ML SYRINGE SQ SCH (05:37)
[2018-10-20] MEDS: Fluticasone Propionate Nasal 50 MCG/SPRAY BOTTLE NS SCH ×2 (08:11→21:37)
[2018-10-20] MEDS: Cyanocobalamin (B-12) 1,000 MCG TABLET PO SCH (08:12)
[2018-10-20] MEDS: predniSONE 10 MG TABLET PO SCH (08:12)
[2018-10-20] MEDS: Multivit/Ca/Min/Fe/FA 1 TAB TABLET PO SCH (08:12)
[2018-10-20] MEDS: Loratadine 10 MG TABLET PO SCH (08:12)
[2018-10-20] MEDS: Aspirin Enteric Coated 81 MG Tablet PO SCH (08:12)
[2018-10-20] MEDS: Furosemide 40 MG TABLET PO SCH (08:13)
[2018-10-20] MEDS: (Roflumilast [Daliresp] 500 MCG) PO SCH (08:13)
[2018-10-20] MEDS: Budesonide/Formoterol 160/4.5 1 PUFF INH IH SCH ×2 (08:22→19:47)
[2018-10-20] MEDS: Tiotropium 18 MCG inhalation IH SCH (08:34)
--- NOTE | 2018-10-20 12:02 | Internal Med Progress Note ---
Date of Encounter: 10/20/18 Time of Encounter: 12:00 - Assessment and plan (1) Acute exacerbation of chronic obstructive airways disease Current Visit: Yes Status: Acute Assessment and plan: Improving. Continue O2 per nasal nasal cannula. Continue prednisone. Continue PT and OT for deconditioning. Will follow progress. continue to wean 02 (2) BPH (benign prostatic hyperplasia) Current Visit: Yes Status: Acute Assessment and plan: Denies complaints or issues. Continue current medication. Qualifiers: Lower urinary tract symptom presence: symptoms present Lower urinary tract symptom detail: unspecified Qualified Code(s): N40.1 - Benign prostatic hyperplasia with lower urinary tract symptoms - Time Spent With Patient less than 15 minutes - Subjective Interval history: participating well with therapy. States feeling better today, sitting on side of bed. Has had improved appetite. States shortness of breath is improving. Still has a productive cough with white sputum. maintaining 02 sats >92% on 2 liters per NC. Denies chest pain, fever, chills, nausea vomiting or diarrhea. planning discharge to home for 10/22. - Constitutional Vitals: Temp Pulse Resp BP Pulse Ox 97.8 F 89 18 114/61 97 10/20/18 07:10 10/20/18 07:10 10/20/18 07:10 10/20/18 07:10 10/20/18 07:10 General appearance: Present: cooperative, A&O X 3, pleasant, no acute distress, answers questions appropriately - Head Head exam: Present: atraumatic, normocephalic - Eye Eye exam: Present: PERRL, conjuntiva pink, sclera anicteric Pupils: Present: PERRL - Neck Neck exam general surgery: Present: supple, trachea midline. Absent: lymphadenopathy - Respiratory Respiratory exam: Present: CTAB. Absent: accessory muscle use, rales, rhonchi, wheezes - Cardiovascular Cardiovascular exam: Present: RRR, +S1, +S2. Absent: diastolic murmur, gallop, rubs, systolic murmur - GI/Abdominal GI/Abdominal exam: Present: normal bowel sounds, soft, no peritoneal signs. Absent: distended, tenderness - Extremities Exam Extremities exam: Present: warm, radial pulses palpable and symmetrical. Absent: calf tenderness, cyanotic, pedal edema - Neurological Exam Neurological exam: Present: CN II-XII intact, oriented X3, no focal deficits. Absent: pronater drift, facial droop, speech deficit - Skin Skin exam: Present: dry, intact Internal Medicine: Result - Labs CBC & Chem 7: 10/13/18 05:50 10/13/18 05:50 Consult Discharge Plan - Plan Referrals: [facility] [Primary Care Provider] -
[2018-10-21] MEDS: Albuterol 2.5 MG/3 ML NEBULIZER IH SCH ×6 (03:30→23:27)
[2018-10-21] MEDS: *HR* Enoxaparin 40 MG/0.4 ML SYRINGE SQ SCH (06:14)
[2018-10-21] MEDS: Tiotropium 18 MCG inhalation IH SCH (07:19)
[2018-10-21] MEDS: Budesonide/Formoterol 160/4.5 1 PUFF INH IH SCH ×2 (07:21→19:43)
[2018-10-21] MEDS: Fluticasone Propionate Nasal 50 MCG/SPRAY BOTTLE NS SCH ×2 (08:29→20:30)
[2018-10-21] MEDS: Loratadine 10 MG TABLET PO SCH (08:30)
[2018-10-21] MEDS: Furosemide 40 MG TABLET PO SCH (08:30)
[2018-10-21] MEDS: Multivit/Ca/Min/Fe/FA 1 TAB TABLET PO SCH (08:30)
[2018-10-21] MEDS: Cyanocobalamin (B-12) 1,000 MCG TABLET PO SCH (08:30)
[2018-10-21] MEDS: Aspirin Enteric Coated 81 MG Tablet PO SCH (08:30)
[2018-10-21] MEDS: (Roflumilast [Daliresp] 500 MCG) PO SCH (08:31)
[2018-10-21] MEDS: predniSONE 10 MG TABLET PO SCH (08:36)
--- NOTE | 2018-10-21 10:12 | Internal Med Progress Note ---
Date of Encounter: 10/21/18 Time of Encounter: 10:10 - Assessment and plan (1) Acute exacerbation of chronic obstructive airways disease Current Visit: Yes Status: Acute Assessment and plan: No acute issues. Patient ambulated this morning and tolerated well. Patient continues on oxygen at 23 liters nasal cannula to maintain saturations greater than 88%. Therapy reports patient's oxygen saturations have remained greater th an 90 during therapy We will continue to wean his oxygen. Continue with current bronchodilators and medications. Patient's being prepared for possible discharge in the morning. (2) BPH (benign prostatic hyperplasia) Current Visit: Yes Status: Acute Assessment and plan: No acute issues. Patient denies any frequency or nocturia. We will continue with current medications Qualifiers: Lower urinary tract symptom presence: symptoms present Lower urinary tract symptom detail: unspecified Qualified Code(s): N40.1 - Benign prostatic hyperplasia with lower urinary tract symptoms (3) Low back pain Current Visit: Yes Status: Chronic Assessment and plan: No acute issues. Patient currently denies any low back pain. Qualifiers: Chronicity: chronic Back pain laterality: unspecified Sciatica presence: with sciatica Sciatica laterality: sciatica laterality unspecified Qualified Code(s): M54.40 - Lumbago with sciatica, unspecified side; G89.29 - Other chronic pain - Time Spent With Patient less than 15 minutes - Subjective Interval history: Patient appears relaxed and currently denies any discomforts or shortness of breath. Patient states he continues to have productive cough with a white thick phlegm received. Denies any fever/chills. Denies any chest palpitations or discomforts. Patient states that he feels his pulmonary endurance has increased greatly while admitted in rehabilitation. Patient being prepared for possible discharge in the morning. - Constitutional Vitals: Temp Pulse Resp BP Pulse Ox 98.1 F 98 16 102/50 98 10/21/18 07:29 10/21/18 07:29 10/21/18 07:29 10/21/18 07:29 10/21/18 07:29 General appearance: Present: cooperative, A&O X 3, pleasant, no acute distress, answers questions appropriately - Head Head exam: Present: atraumatic, normocephalic - Eye Eye exam: Present: PERRL, conjuntiva pink, sclera anicteric Pupils: Present: PERRL - Neck Neck exam general surgery: Present: supple, trachea midline. Absent: lymphadenopathy - Respiratory Respiratory exam: Present: decreased breath sounds, CTAB. Absent: accessory muscle use, rales, rhonchi, wheezes Additional comments: Lungs are clear throughout upper joshi with noted fine rales to posterior bases. Respiratory effort appears relaxed while at rest. No productive cough noted. - Cardiovascular Cardiovascular exam: Present: irregular rhythm, RRR, +S1, +S2. Absent: diastolic murmur, gallop, rubs, systolic murmur Additional comments: Heart rate remains irregular with a controlled rate less than 100. - GI/Abdominal GI/Abdominal exam: Present: normal bowel sounds, soft, no peritoneal signs. Absent: distended, tenderness - Extremities Exam Extremities exam: Present: warm, radial pulses palpable and symmetrical. Absent: calf tenderness, cyanotic, pedal edema - Neurological Exam Neurological exam: Present: CN II-XII intact, oriented X3, no focal deficits. Absent: pronater drift, facial droop, speech deficit - Skin Skin exam: Present: dry, intact Internal Medicine: Result - Labs CBC & Chem 7: 10/13/18 05:50 10/13/18 05:50 Consult Discharge Plan - Plan Referrals: [facility] [Primary Care Provider] -
--- NOTE | 2018-10-21 10:54 | Discharge Summary ---
<Tommie Guan - Last Filed: 10/21/18 10:50> Date of Encounter: 10/22/18 - Discharge Diagnosis (1) Acute exacerbation of chronic obstructive airways disease Priority: Primary Status: Acute Comments: Patient was admitted to this facility for rehabilitation due to generalized weakness and dyspnea following a hospitalization for respiratory failure and pneumonia. Patient has progressed well during this stay. Patient currently has been maintain his oxygen saturation greater than 90% while on supplemental oxygen. Patient states his endurance has improved and he is able to ambulate 100 feet without any dyspnea. Patient is being discharged to home and is to continue his therapy to outpatient services here at [facility]. 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 (2) BPH (benign prostatic hyperplasia) Status: Acute Comments: No acute issues during stay of facility. Patient has denied any nocturia or frequency. He is to continue with his current medications and follow-up with his PCP after discharge. Qualifiers: Lower urinary tract symptom presence: symptoms present Lower urinary tract symptom detail: unspecified Qualified Code(s): N40.1 - Benign prostatic hyperplasia with lower urinary tract symptoms (3) Low back pain Status: Chronic Comments: Patient continues with chronic low back pain which has been well managed with oral medications. No acute radicular symptoms noted. Patient is continue with home medications and continue his physical therapy to outpatient services. Qualifiers: Chronicity: chronic Back pain laterality: unspecified Sciatica presence: with sciatica Sciatica laterality: sciatica laterality unspecified Qualified Code(s): M54.40 - Lumbago with sciatica, unspecified side; G89.29 - Other chronic pain Hospital course: Mr. Parks is a 72 year old male, who was admitted to this facility for rehabilitation due to generalized weakness and dyspnea following a hospitalization for respiratory failure and pneumonia. Patient has a long history of COPD. Patient progressed well during his stay at this facility with progress showing in his endurance and decreased dyspnea during exertion. Patient completed his antibiotics after transferred to this facility and has remained afebrile during his stay. Patient continues with a productive cough but white phlegm has been received. States that therapy has progressed well for him that his current doses greatly increased during his stay. Patient is to continue his physical therapy to outpatient services here at [facility]. Patient is to follow-up with PCP and pulmonology after discharge. Discharge discussed with: patient Time spent discussing smoking cessation with patient: 3 to 10 minutes - Time Spent with Patient Total time spent providing and/or coordinating discharge services: Time spent: Less than 30 minutes - Discharge Medications Prescriptions: No Action Roflumilast [Daliresp] 500 mcg PO DAILY predniSONE [PredniSONE] 10 mg PO DAILY Nicotine Gum [Nicorette gum] 4 mg BC 5XD Metoprolol [Lopressor] 25 mg PO BID Guaifenesin 400 mg PO BID Calcium Carbonate 650 mg PO BID Budesonide/Formoterol 160/4.5 [Symbicort 160/4.5] 2 puff IH BID Albuterol Neb [AccuNeb] 0.63 mg IH Q6H PRN PRN Reason: rescue breathing Albuterol Sulfate [Albuterol Inhaler] 2 puff IH Q4H PRN PRN Reason: Shortness Of Breath Atorvastatin [Lipitor] 10 mg PO HS Acetylcysteine 10% 4 ml IH Q12H Tiotropium [Spiriva] 18 mcg IH 1200 Multivitamin [Multi-Day Vitamins] 1 each PO DAILY Cholecalciferol (Vitamin D3) [Vitamin D] 2,000 unit PO BID Aspirin [Adult Low Dose Aspirin EC] 81 mg PO DAILY Furosemide [Lasix] 60 mg PO DAILY Potassium Chloride [K-Tab ER] 40 meq PO DAILY Polyethylene Glycol 3350 [MiraLAX] 17 gm PO DAILY Nicotine Gum [Nicorette gum] 2 mg BC Q2H PRN PRN Reason: craving Montelukast [Singulair] 10 mg PO DAILY Loratadine [Allergy Relief] 10 mg PO DAILY Docusate [Colace] 100 mg PO BID PRN PRN Reason: Constipation diazePAM [Valium] 2 mg PO BID Roflumilast [Daliresp] 500 mcg PO DAILY Cyclobenzaprine [Flexeril] 5 mg PO TID PRN PRN Reason: Spasms Alendronate Sodium [Fosamax] 70 mg PO QWEEK Acetaminophen [Tylenol] 1,000 mg PO Q6HR PRN PRN Reason: pain fever Oxycodone HCl/Acetaminophen [Percocet 5-325 mg Tablet] 1 each PO TID PRN PRN Reason: Pain Tamsulosin HCl [Flomax] 0.4 mg PO DAILY Home Medications: Acetylcysteine 10% 4 ml IH Q12H 04/08/15 [History] Albuterol Neb [AccuNeb] 0.63 mg IH Q6H PRN 04/08/15 [History] Albuterol Sulfate [Albuterol Inhaler] 2 puff IH Q4H PRN 04/08/15 [History] Atorvastatin [Lipitor] 10 mg PO HS 04/08/15 [History] Budesonide/Formoterol 160/4.5 [Symbicort 160/4.5] 2 puff IH BID 04/08/15 [History] Calcium Carbonate 650 mg PO BID 04/08/15 [History] Guaifenesin 400 mg PO BID 04/08/15 [History] Metoprolol [Lopressor] 25 mg PO BID 04/08/15 [History] Nicotine Gum [Nicorette gum] 4 mg BC 5XD 04/08/15 [History] Roflumilast [Daliresp] 500 mcg PO DAILY 04/08/15 [History] Tiotropium [Spiriva] 18 mcg IH 1200 04/08/15 [History] predniSONE [PredniSONE] 10 mg PO DAILY 04/08/15 [History] Aspirin [Adult Low Dose Aspirin EC] 81 mg PO DAILY 04/09/15 [History] Cholecalciferol (Vitamin D3) [Vitamin D] 2,000 unit PO BID 04/09/15 [History] Multivitamin [Multi-Day Vitamins] 1 each PO DAILY 04/09/15 [History] Acetaminophen [Tylenol] 1,000 mg PO Q6HR PRN 10/12/18 [History] Alendronate Sodium [Fosamax] 70 mg PO QWEEK 10/12/18 [History] Cyclobenzaprine [Flexeril] 5 mg PO TID PRN 10/12/18 [History] Docusate [Colace] 100 mg PO BID PRN 10/12/18 [History] Furosemide [Lasix] 60 mg PO DAILY 10/12/18 [History] Loratadine [Allergy Relief] 10 mg PO DAILY 10/12/18 [History] Montelukast [Singulair] 10 mg PO DAILY 10/12/18 [History] Nicotine Gum [Nicorette gum] 2 mg BC Q2H PRN 10/12/18 [History] Oxycodone HCl/Acetaminophen [Percocet 5-325 mg Tablet] 1 each PO TID PRN 10/12/18 [History] Polyethylene Glycol 3350 [MiraLAX] 17 gm PO DAILY 10/12/18 [History] Potassium Chloride [K-Tab ER] 40 meq PO DAILY 10/12/18 [History] Roflumilast [Daliresp] 500 mcg PO DAILY 10/12/18 [History] Tamsulosin HCl [Flomax] 0.4 mg PO DAILY 10/12/18 [History] diazePAM [Valium] 2 mg PO BID 10/12/18 [History] Allergies/Adverse Reactions: Allergy/AdvReac Type Severity Reaction Status Date / Time codeine AdvReac Gastrointestinal Verified 08/02/17 09:30 Upset Date of admission: 10/12/18 12:25 [facility] Consults: 10/12/18 13:13 Consult to Occupational Therapy [CONS] Routine Comment: eval Reason for Consult: eval Does patient have active BEDREST order?: No Is patient medically & hemodynamically stable?: Yes Consult to Physical Therapy [CONS] Routine Comment: eval Reason for Consult: eval Does patient have active BEDREST order?: No Is patient medically & hemodynamically stable?: Yes Consult to Recreational Therapy [CONS] Routine Comment: Consult to Transport Aide [CONS] Routine Reason for SW Consult: d/c planning Discharging clinician: Foreign Cotto - Constitutional Vitals: Temp Pulse Resp BP Pulse Ox 98.1 F 98 16 102/50 98 10/21/18 07:29 10/21/18 07:29 10/21/18 07:29 10/21/18 07:29 10/21/18 07:29 General appearance: Present: cooperative, A&O X 3, pleasant, no acute distress, answers questions appropriately - Head Head exam: Present: atraumatic, normocephalic - Eye Eye exam: Present: PERRL, conjuntiva pink, sclera anicteric Pupils: Present: PERRL - Neck Neck exam general surgery: Present: supple, trachea midline. Absent: lymphadenopathy - Respiratory Respiratory exam: Present: decreased breath sounds, CTAB, rales. Absent: accessory muscle use, rhonchi, wheezes Additional comments: Patient's lungs are clear throughout upper joshi with noted fine posterior bibasilar rales. No productive cough noted during exam. Respiratory effort appears relaxed while at rest. Patient continues with supplemental oxygen - Cardiovascular Cardiovascular exam: Present: irregular rhythm, RRR, +S1, +S2. Absent: diastolic murmur, gallop, rubs, systolic murmur - GI/Abdominal GI/Abdominal exam: Present: normal bowel sounds, soft, no peritoneal signs. Absent: distended, tenderness - Extremities Exam Extremities exam: Present: warm, radial pulses palpable and symmetrical. Absent: calf tenderness, cyanotic, pedal edema - Neurological Exam Neurological exam: Present: CN II-XII intact, oriented X3, no focal deficits. Absent: pronater drift, facial droop, speech deficit - Skin Skin exam: Present: dry, intact - Patient Status Disposition: Home, Self-Care Condition: Good Functional capacity at discharge: uses cane/walker Overall status at discharge: patient is progressing back to baseline - Discharge Instructions [facility] With: [facility]Primary Care Provider[facility] - - Diet and Activity Activity: ambulate only with your walker, as per physical therapy, increase activity as tolerated Diet: low fat, low cholesterol, low salt diet <Foreign Cotto - Last Filed: 10/22/18 09:43> Date of Encounter: 10/22/18 Time of Encounter: 09:34 - Discharge Diagnosis (1) Weakness Priority: Secondary Status: Acute Comments: Acute exacerbation of chronic respiratory failure and pneumonia. He has done well with therapy, gaining strength and progressing nicely. (2) Acute exacerbation of chronic obstructive airways disease Priority: Primary Status: Acute (3) Nicotine dependence with nicotine-induced disorder Priority: Secondary Status: Chronic Comments: Since he is totally off of cigarettes and will stop smoking. Qualifiers: Nicotine product type: cigarettes Qualified Code(s): F17.219 - Nicotine dep endence, cigarettes, with unspecified nicotine-induced disorders (4) BPH (benign prostatic hyperplasia) Priority: Secondary Status: Acute Qualifiers: Lower urinary tract symptom presence: symptoms present Lower urinary tract symptom detail: unspecified Qualified Code(s): N40.1 - Benign prostatic hyperplasia with lower urinary tract symptoms (5) Pneumonia Priority: Secondary Status: Acute Comments: Clinically resolved Qualifiers: Pneumonia type: due to unspecified organism Laterality: right Lung location: middle lobe of lung Qualified Code(s): J18.1 - Lobar pneumonia, unspecified organism Hospital course: Patient notes yellowish phlegm with shortness of breath after breathing treatment, last night. Coughing seemed to relieve this. [facility] This will be provided to him, at home. Patient is without complaint. He is pleased to be going home and feels so much better than he did even for the last year. Discussed care with other providers and/or nursing. Patient has no complaint of chest discomfort, dyspnea, orthopnea, palpitations, nausea or vomiting, constipation or diarrhea, other changes in bowel habits, difficulty with urination, rash or itching, or other new complaints, except as mentioned above. Review of systems is otherwise negative. - Time Spent with Patient Total time spent providing and/or coordinating discharge services: Date of admission: 10/12/18 12:25 Primary care physician: PCP [place] Consults: 10/12/18 13:13 Consult to Occupational Therapy [CONS] Routine Comment: eval Reason for Consult: eval Does patient have active BEDREST order?: No Is patient medically & hemodynamically stable?: Yes Consult to Physical Therapy [CONS] Routine Comment: eval Reason for Consult: eval Does patient have active BEDREST order?: No Is patient medically & hemodynamically stable?: Yes Consult to Recreational Therapy [CONS] Routine Comment: Consult to Transport Aide [CONS] Routine Reason for SW Consult: d/c planning - Constitutional Vitals: Temp Pulse Resp BP Pulse Ox 98 F 74 20 125/65 95 10/22/18 07:31 10/22/18 07:31 10/22/18 07:31 10/22/18 07:31 10/22/18 07:31 Exam: Examination: (Except as mentioned above): General: In no apparent distress. Alert and oriented 3. Nondiaphoretic. Patient is on oxygen by nasal cannula. Head: Atraumatic and normocephalic. Respiratory: No use of accessory muscles. Lungs are clear throughout with the exception of a diffuse minimal sonorous rhonchus. Normal airflow. Cardiovascular: Regular rate and rhythm without murmur appreciated. Abdomen: Bowel sounds are normal. No hepatosplenomegaly mass or tenderness appreciated. Obese and therefore difficult to palpate deeply. Patient is examined upright at bedside and this also limits exam. Extremities: No cyanosis clubbing or edema. Skin: Warm and non-diaphoretic with no new lesions noted.
[2018-10-22] MEDS: Albuterol 2.5 MG/3 ML NEBULIZER IH SCH ×3 (03:26→10:20)
[2018-10-22] MEDS: *HR* Enoxaparin 40 MG/0.4 ML SYRINGE SQ SCH (05:39)
[2018-10-22 07:32] VITALS: BP 125/65
[2018-10-22] MEDS: Loratadine 10 MG TABLET PO SCH (08:14)
[2018-10-22] MEDS: predniSONE 10 MG TABLET PO SCH (08:14)
[2018-10-22] MEDS: Cyanocobalamin (B-12) 1,000 MCG TABLET PO SCH (08:14)
[2018-10-22] MEDS: Tiotropium 18 MCG inhalation IH SCH (08:15)
[2018-10-22] MEDS: Multivit/Ca/Min/Fe/FA 1 TAB TABLET PO SCH (08:15)
[2018-10-22] MEDS: Furosemide 40 MG TABLET PO SCH (08:15)
[2018-10-22] MEDS: Budesonide/Formoterol 160/4.5 1 PUFF INH IH SCH (08:15)
[2018-10-22] MEDS: Aspirin Enteric Coated 81 MG Tablet PO SCH (08:15)
[2018-10-22] MEDS: Fluticasone Propionate Nasal 50 MCG/SPRAY BOTTLE NS SCH (08:19)
[2018-10-22] MEDS: (Roflumilast [Daliresp] 500 MCG) PO SCH (08:33)
[2018-10-26] MEDS ORDERED: predniSONE 10 MG TABLET PO SCH (09:00)
== END 2018-10-22 10:44 | disposition home or self-care (01) | DRG 945 ==
LOC: INPGRE 12:25